=== PATIENT | female | born 1965 | race Native Hawaiian/Other Pacific Islander ===

== ENCOUNTER 2018-08-05 08:36 | Day surgery (SDC) | payer OTHER, BC ==
[~2018-08-05] VITALS: Ht 172.7 cm; Wt 81.6 kg
== END 2018-08-05 10:58 | disposition home or self-care (01) ==
LOC: OR 08:36
PROC: 3E0R33Z Introduction of Anti-inflammatory into Spinal Canal, Percutaneous Approach (ICD-10-PCS; principal; 2018-08-05)
PROC: B01BYZZ Fluoroscopy of Spinal Cord using Other Contrast (ICD-10-PCS; 2018-08-05)
DX: M50.123 Cervical disc disorder at C6-C7 level with radiculopathy (principal)
CPT/HCPCS: J1020

== ENCOUNTER 2018-09-02 09:12 | Day surgery (SDC) | payer OTHER, BC ==
[~2018-09-02] VITALS: Ht 172.7 cm; Wt 83.5 kg
== END 2018-09-02 11:57 | disposition home or self-care (01) ==
LOC: OR 09:12
PROC: 3E0R33Z Introduction of Anti-inflammatory into Spinal Canal, Percutaneous Approach (ICD-10-PCS; principal; 2018-09-02)
PROC: B01BYZZ Fluoroscopy of Spinal Cord using Other Contrast (ICD-10-PCS; 2018-09-02)
DX: M50.222 Other cervical disc displacement at C5-C6 level (principal); M54.12 Radiculopathy, cervical region
CPT/HCPCS: J1020

== ENCOUNTER 2020-05-15 15:13 | Outpatient (CLI) | payer OTHER, BC | END 2020-05-15 19:29 | disposition home or self-care (01) | LOC: EMG 15:13 | PROVIDERS: ATTEND Pain Medicine Interventional Pain Medicine | DX: M50.022 Cervical disc disorder at C5-C6 level with myelopathy (principal) | CPT/HCPCS: 95860; 95910 ==